=== PATIENT | female | born 1975 | race Caucasian/White ===

== ENCOUNTER → 2016-08-22 | Outpatient (CLI) | payer BC, OTHER | LOC: RAD 11:14 | DX: M25.572 Pain in left ankle and joints of left foot (principal); M25.472 Effusion, left ankle ==

== ENCOUNTER → 2020-05-14 | Outpatient (CLI) | payer BC, OTHER | LOC: ULTRA 09:25 | PROVIDERS: ATTEND Family Medicine | DX: N83.291 Other ovarian cyst, right side (principal); R10.2 Pelvic and perineal pain ==

== ENCOUNTER → 2020-09-22 | Outpatient (CLI) | payer OTHER | LOC: ULTRA 07:46 | PROVIDERS: ATTEND Family Medicine | DX: R10.13 Epigastric pain (principal) ==

== ENCOUNTER → 2020-09-24 | Outpatient (CLI) | payer OTHER ==
[2020-09-24 09:46] LABS: URINE BILIRUBIN NEGATIVE (Negative); URINE BLOOD NEGATIVE (Negative); URINE CLARITY CLEAR; URINE COLOR YELLOW; URINE GLUCOSE-RANDOM* NEGATIVE (Negative); URINE KETONES NEGATIVE (Negative); URINE LEUKOCYTES-REFLEX NEGATIVE (Negative); URINE NITRITE-REFLEX NEGATIVE (Negative); URINE PROTEIN (DIPSTICK) NEGATIVE (Negative); URINE SPECIFIC GRAVITY 1.015 (1.005-1.035); URINE UROBILINOGEN 0.2 E.U./dl (0.2-1.0)
[2020-09-24 09:51] LABS: ABSOLUTE NEUTROPHILS 3.4 thou/uL (1.4-8.2); EOSINOPHILS 2.9 % (0.0-3.0); HEMATOCRIT 37.6 % (37.0-47.0); HEMOGLOBIN 12.4 gm/dL (12.0-15.0); LYMPHOCYTES 24.2 % (24.0-44.0); MCH 30.8 pg (26.0-34.0); MCV 93.2 fL (80.0-100.0); PLATELET COUNT 267 thou/uL (150-400); POLYS 65.9 % (36.0-66.0); RBC 4.04 mil/uL (4.20-5.00); RDW 12.7 % (10.5-14.5); WBC 5.2 thou/uL (4.0-11.0)
[2020-09-24 10:02] LABS: ALBUMIN 3.5 g/dL (3.4-5.0); ANION GAP 9 mmol/L (7-16); BUN 16 mg/dL (7-18); CALCIUM 8.3 mg/dL (8.5-10.1); CHLORIDE 105 mmol/L (98-107); CHOLESTEROL 137 mg/dL (<200); CO2 26 mmol/L (21-32); CREATININE 1.1 mg/dL (0.6-1.0); GLUCOSE 91 mg/dL (74-106); HDL CHOLESTEROL 70 mg/dL (>40); LDL CHOLESTEROL 55 mg/dL (<100); SGOT 16 U/L (15-37); SGPT 21 U/L (30-65); SODIUM 140 mmol/L (136-145); TOTAL BILIRUBIN 0.5 mg/dL (0.2-1.0); TOTAL PROTEIN 6.8 g/dL (6.4-8.2); TRIGLYCERIDE 64 mg/dL (<150); VLDL 13 mg/dL (<40)
== END ==
LOC: LAB 09:04
PROVIDERS: ATTEND Family Medicine
DX: Z00.00 Encounter for general adult medical examination without abnormal findings (principal)

== ENCOUNTER → 2021-03-23 | Outpatient (CLI) | payer OTHER ==
[~2021-03-23] VITALS: Ht 162.6 cm; Wt 68.0 kg
[~2021-03-23] MED LIST: CELEXA 20 MG TA20 MG PO; LO LOESTRIN FE1 EACH PO; MULTI VITAMIN1 EACH PO; PRILOSEC OTC20 MG PO
--- NOTE | 2021-03-25 08:20 | P ---
[facility] [place] [address] PROCEDURE REPORT Name: DAYA ARNOLD Room #: REG [facility]#: [id number] Admission: 03/23/21 Attend Phys: Leonardo Tucker Discharge: Date of : 71 Report #: [id number] THIS REPORT FOR: cc: Deshawn David MD, Neal A. MD McElhinney, Christian C. MD ~ cc: Deshawn David MD DATE OF SERVICE: 03/23/2021 PROCEDURE PERFORMED: Upper endoscopy with biopsies. HISTORY OF PRESENT ILLNESS: The patient is a 46-year-old female with a history of gastroesophageal reflux disease, chronic cough likely due to reflux. For years was taking Prilosec, under fairly good control; however, began having increased symptoms; therefore switched to Protonix, appeared to cause diarrhea. Therefore, this has been held for the last month. She does report mild intermittent right upper quadrant abdominal pain and has had an ultrasound that was negative. DESCRIPTION OF PROCEDURE: The risks and benefits of the procedure were explained to the patient, those risks including but not limited to bleeding, perforation, and the risk of sedation. She understood these risks and gave informed consent. Sedation was given using propofol per Anesthesia. Next, using a standard Olympus upper endoscope, the scope was placed in the patient's mouth and advanced under direct vision through the esophagus, stomach, and into the second portion of the duodenum. The larynx was normal in appearance. The upper and mid esophagus were normal. In the distal esophagus at the GE junction, a possible short segment of Choi's esophagus was noted. Biopsies were obtained. Overall, the gastric mucosa was normal. Biopsies were obtained to rule out H. pylori. The pylorus was normal and patent. The duodenal bulb, first and second portion were all normal. Biopsies were obtained to rule out the possibility of celiac sprue. The scope was then withdrawn and the procedure terminated. The patient tolerated the procedure well. IMPRESSION: 1. Possible short segment of Choi's esophagus. 2. Otherwise, normal upper endoscopy. RECOMMENDATIONS: 1. Await biopsy results. 2. We discussed starting a different PPI, Nexium 40 mg on a daily basis next day. [facility] [address] [place] [address] PROCEDURE REPORT Name: DAYA ARNOLD Room #: REG [facility].#: [id number] Admission: 03/23/21 Attend Phys: Leonardo Tucker Discharge: Date of : 71 Report #: [id number] Thank you for allowing me to participate in her care. <ELECTRONICALLY SIGNED> By: Leonardo Gonzalez MD 03/25/21 0820 [id number] [id number] Leonardo Gonzalez MD /nt
--- NOTE | 2021-03-25 11:08 | PATH ---
[facility] [place] [address] PATHOLOGY RPT PROCEDURE Name: SHREYA GOMEZ [id number]: 03/23/21 Date of : 71 Discharge: Report #: [id number] Path Case #: [id number] [facility] Accession Number: [id number] . 01 Material submitted: . PART A: duodenum - DUODENAL BIOPSY- R/O SPRUE PART B: gastrointestinal site - GASTRIC BIOPSY- R/O H. PYLORI PART C: esophagus - DISTAL ESOPAHGUS- R/O MELENDEZ'S. Modifiers: distal . 01 Clinical history: . ESOPHAGOGASTRODUODENOSCOPY REFLUX GERD . 02 Diagnosis: A. Small bowel mucosa, duodenum, rule out sprue, endoscopic biopsy: - No diagnostic abnormalities. - Negative for villous blunting and increase in intraepithelial lymphocytes. . B. Gastric mucosa, gastric, rule out H. pylori, endoscopic biopsy: - Mild chronic inflammation. - Negative for intestinal metaplasia or atrophy. - Negative for Helicobacter pylori (properly controlled immunohistochemical stain performed). . C. Gastroesophageal mucosa, distal esophagus, rule out Melendez's, endoscopic biopsy: - Gastric cardia-type mucosa with mild chronic inflammation. - Squamous mucosa with mild esophagitis. - Negative for intestinal metaplasia (Melendez's metaplasia) or dysplasia. . (IUV:[employer]cel [employer]; 03/24/2021) MBR 03/24/2021 1258 Local . 02 Electronically signed: . Christy García MD, Pathologist NPI- [id number] . 01 Gross description: . A. The specimen is submitted in formalin, labeled "Shreya Gomez, duodenal biopsy". Received are 6 segments of pale malik tissue ranging in size from 0.2 to 0.5 cm in maximum dimensions. The specimen is submitted entirely in cassette A1. . B. The specimen is submitted in formalin, labeled "Shreya Gomez, gastric biopsy". Received are 3 segments [place] [address] PATHOLOGY RPT PROCEDURE Name: SHREYA GOMEZ [id number] Admission: 03/23/21 Date of : 71 Discharge: Report #: [id number] Path Case #: [id number] size from 0.3 to 0.6 cm in maximum dimensions. The specimen is submitted entirely in cassette B1. . C. The specimen is submitted in formalin, labeled "Jason, Shreya, distal esophagus". Received are 2 segments of pale malik tissue ranging in size from 0.3 to 0.4 cm in maximum dimensions. The specimen is submitted entirely in cassette C1. ([facility]; 03/23/2021) NRI/NRI 03/23/20217 Local . 02 Pathologist provided ICD-10: K29.50, K20.90 . 02 CPT . 144542, 280555, 324992, [id number] Specimen Comment: A courtesy copy of this report has been sent to [phone], [phone] Specimen Comment: [id number] Specimen Comment: Report sent to / DR HARRELL Specimen Comment: A duplicate report has been generated due to demographic updates. Performed at: [address], [place] [id number] MD Mahin Peterson MD Phone: [phone] Performed at: [address] [id number] MD Christy García MD Phone: [phone]
== END | disposition home or self-care (01) ==
LOC: GI 09:06
PROVIDERS: ATTEND Specialist
DX: R10.11 Right upper quadrant pain (principal); K29.50 Unspecified chronic gastritis without bleeding; K21.00 Gastro-esophageal reflux disease with esophagitis, without bleeding; F32.9 Major depressive disorder, single episode, unspecified; Z98.890 Other specified postprocedural states; Z79.899 Other long term (current) drug therapy; Z20.822 Contact with and (suspected) exposure to COVID-19
CPT/HCPCS: 62110; 62900

== ENCOUNTER → 2021-04-19 | Outpatient (CLI) | payer OTHER | LOC: RAD 08:36 | PROVIDERS: ATTEND Family Medicine | DX: Z12.31 Encounter for screening mammogram for malignant neoplasm of breast (principal); N64.89 Other specified disorders of breast ==

== ENCOUNTER → 2021-06-20 | Outpatient (CLI) | payer OTHER | LOC: NUC 08:02 | PROVIDERS: ATTEND Family Medicine | DX: R10.11 Right upper quadrant pain (principal) ==